=== PATIENT | female | born 1995 | race Caucasian/White ===

== ENCOUNTER 2019-06-17 17:42 | Emergency (ER) | payer SELFPAY ==
--- NOTE | 2019-06-17 17:54 | PDOC ---
Rapid Medical Evaluation Time Seen by Provider: 06/17/19 17:52 Medical Evaluation: 06/17/19 17:52 I have performed a brief in-person evaluation of this patient. The patient presents with a chief complaint of: MCKEON x 3 days s/p slip + fall, blunt head trauma, R eye/ear pain Pertinent physical exam findings: well appearing, no focal neuro deficits I have ordered the following: head CT, upreg The patient will proceed to the ED for further evaluation. Discharge Disposition - Diagnosis Headache, Fall - Referrals - Patient Instructions - Post Discharge Activity
[2019-06-17 17:55] VITALS: BP 125/80; PULSE 62; TEMP 98; BMI 24.2
--- NOTE | 2019-06-17 18:18 | PDOC ---
History of Present Illness - General Chief Complaint: Headache Stated Complaint: HEADACHE Time Seen by Provider: 06/17/19 17:52 History Source: Patient - History of Present Illness Timing/Duration: reports: other (4 days ago) Past History - Past Medical History Allergies/Adverse Reactions: Allergies Allergy/AdvReac Type Severity Reaction Status Date / Time No Known Allergies Allergy Verified 06/17/19 17:55 COPD: No - Psycho Social/Smoking Cessation Hx Smoking History: Never smoked Hx Alcohol Use: Yes Drug/Substance Use Hx: No Review of Systems - Review of Systems HEENTM: No: Blurred Vision ABD/GI: No: Nausea, Vomiting Neurological: No: Numbness, Tingling, Weakness, Dizziness *Physical Exam - Vital Signs Last Vital Signs Temp Pulse Resp BP Pulse Ox 98.0 F 62 16 125/80 98 06/17/19 17:52 06/17/19 17:52 06/17/19 17:52 06/17/19 17:52 06/17/19 17:52 - Physical Exam General Appearance: Yes: Appropriately Dressed. No: Apparent Distress HEENT: positive: Normal Voice, Other (minimal ttp to R parietal area, no swellign or obvious skin chnages) Neck: positive: Supple. negative: Tender, Decreased range of motion Respiratory/Chest: negative: Respiratory Distress Integumentary: positive: Dry, Warm Neurologic: positive: engineer geophysical laboratory II-XII NML intact, Fully Oriented, Alert, Normal Mood/ Affect, Motor Strength 5/5 Medical Decision Making - Medical Decision Making 06/17/19 18:12 23-year-old female, no significant history, here with right sided head pain after fall 5 days ago where she tripped while running and hit her head on the grass per patient. No LOC, dizziness nausea or vomiting. Took Tylenol with no significant relief. see exam Scalp contusion s/p head injury 5 days ago No neuro sxs Well lesley w/ minimal ttp to R parietal area, neuro intact -Dc w/pain control prn Discharge - Discharge Information Problems reviewed: Yes Clinical Impression/Diagnosis: Headache Qualifiers: Headache type: unspecified Headache chronicity pattern: acute headache Intractability: not intractable Qualified Code(s): R51 - Headache Fall Qualifiers: Encounter type: initial encounter Qualified Code(s): W19.XXXA - Unspecified fall, initial encounter Condition: Good Disposition: HOME - Follow up/Referral - Patient Discharge Instructions Patient Printed Discharge Instructions: DI for Headache Additional Instructions: La causa de farr dolor de dom puede deberse a la contusin del cuero cabelludo [employer] sweta segn sea necesario Print Language: HEBREW - Post Discharge Activity
[2019-06-17] MEDS ORDERED: IBUPROFEN 400 MG TABLET (FP) PO ONE ×2 (18:19→18:22)
== END 2019-06-17 18:29 | disposition home or self-care (01) ==
LOC: JERFT 17:42
DX: R51 Headache (principal)
CPT/HCPCS: 99282-25

== ENCOUNTER 2019-06-25 15:45 | Emergency (ER) | payer OTHER ==
[2019-06-25 16:03] VITALS: BP 99/60; PULSE 89; TEMP 97.9; BMI 24.1
--- NOTE | 2019-06-25 16:20 | PDOC ---
History of Present Illness - General Chief Complaint: Headache Stated Complaint: HEADACHE Time Seen by Provider: 06/25/19 16:08 History Source: Patient Exam Limitations: No Limitations - History of Present Illness Initial Comments: 06/25/19 17:23 Chief complaint: Headache Patient 23-year-old female who was seen here 8 days ago after she fell going up the stairs, hitting the right side of her head on a concrete step. Patient had no significant head injury, did not get a CAT scan. Patient came back today because she still has a headache, pain in the same area. Patient states she has dizziness on and off, she has been taking Motrin with little relief. Patient has no numbness. Patient is ambulatory. Patient complaining some nausea on and off. Last menstruation was the end of last month. GENERAL/CONSTITUTIONAL: No fever, weakness. dizziness HEAD, EYES, EARS, NOSE AND THROAT: No change in vision. No ear pain or discharge. No sore throat. CARDIOVASCULAR: No chest pain RESPIRATORY: No shortness of breath or cough GASTROINTESTINAL: No pain, nausea, vomiting, diarrhea or constipation GENITOURINARY: No dysuria MUSCULOSKELETAL: No neck or back pain SKIN: No rash NEUROLOGIC: No headache, vertigo, loss of consciousness, or loss of sensation. GENERAL: The patient is awake, alert, and fully oriented, in no acute distress. HEAD: Normal with no signs of trauma. EYES: Pupils equal, round and reactive to light, sclera anicteric, conjunctiva clear. EOMs intact ENT: pharynx: no erythema, no exudate, uvula midline NECK: supple CHEST: clear, nontender, rr ABD: soft, nontender BACK: no tenderness or signs of injury EXTREMITIES: Normal range of motion, no edema. NEUROLOGICAL: Normal speech, normal gait. Cranial nerves II through XII grossly intact, no gross focal abnormalities SKIN: Warm, Dry Past History - Past Medical History Allergies/Adverse Reactions: Allergies Allergy/AdvReac Type Severity Reaction Status Date / Time No Known Allergies Allergy Verified 06/17/19 17:55 Home Medications: Ambulatory Orders Ibuprofen [Ibu] 600 mg PO TID PRN 06/25/19 COPD: No - Psycho Social/Smoking Cessation Hx Smoking History: Never smoked Hx Alcohol Use: No Drug/Substance Use Hx: No *Physical Exam - Vital Signs Last Vital Signs Temp Pulse Resp BP Pulse Ox 97.9 F 89 18 99/60 99 02/27/20 16:01 06/25/19 16:01 06/25/19 16:01 06/25/19 16:01 06/25/19 16:01 Medical Decision Making - Medical Decision Making 06/25/19 17:37 Healthy 23-year-old female who injured her head 8 days ago, walking up the stairs and hit it on concrete. Was seen in the ER. Patient still complaining of headache and some dizziness on and off and some nausea. Patient is neurologically intact and ambulatory. Patient most concerned because she is taking Motrin and she still has a headache. Patient likely has concussion but will get head CT after discussion. 06/25/19 18:[address] is negative, will give patient concussion instructions. Discussed issues, findings, results, applicable medications and treatments and follow-up. All these were understood and all questions were answered Discharge - Discharge Information Problems reviewed: Yes Clinical Impression/Diagnosis: Head injury Qualifiers: Encounter type: initial encounter Qualified Code(s): S09.90XA - Unspecified injury of head, initial encounter Condition: Stable Disposition: HOME - Follow up/Referral Referrals: Anand Camargo MD [Staff Physician] - - Patient Discharge Instructions Patient Printed Discharge Instructions: DI for Concussion Additional Instructions: Your head CT does not show a fracture or bleeding. You likely have a concussion from your head injury and it may take time for the symptoms to go away. You should make sure that you are drinking plenty of fluids. You should follow- up with the neurologist for further evaluation and management of your symptoms. In the meanwhile you can take Tylenol 650 mg every 4 hours and/or Motrin 600 mg every 6 hours. You should return to the ER if you start vomiting or you feel very ill La tomografa computarizada de la dom no muestra fractura ni sangrado. Es probable que tenga solomon conmocin cerebral por solomon lesin en la dom y que los sntomas tarden en desaparecer. Debe asegurarse de beber muchos lquidos. Debe realizar un seguimiento con el neurlogo para solomon mayor evaluacin y manejo de montserrat sntomas. Mientras tanto, puede shay Tylenol 650 mg cada 4 horas y / o Motrin 600 mg cada 6 horas. Debe regresar a la espinoza de emergencias si comienza a vomitar o se siente muy enfermo Print Language: TOGOLESE - Post Discharge Activity
== END 2019-06-25 18:16 | disposition home or self-care (01) ==
LOC: JERFT 15:45 → JER 15:45 → JERFT 18:16
DX: S09.8XXD Other specified injuries of head, subsequent encounter (principal); W10.8XXD Fall (on) (from) other stairs and steps, subsequent encounter
CPT/HCPCS: 70450-TC; 99284-25